=== PATIENT | female | born 1930 | race Caucasian/White ===

== ENCOUNTER 2018-10-13 21:28 | Emergency (ER) | payer MEDICARE, OTHER ==
[~2018-10-13] VITALS: Ht 154.9 cm; Wt 77.1 kg
--- NOTE | 2018-10-13 21:54 | NUR ---
BIBDAUGHTER C/O SOB X 1 DAY, DENIES ANY CP AT THIS TIME. HX OF COPD. PATIENT STATES SHE HAVING THROAT PAIN W/A "CHOKING FEELING". DOES NOT APPEAR TO BE IN DISTRESS. O2 SAT 97% ON RA. HYPERTENSIVE AND BRADYCARDIC, AOX4, AMBULATORY. ON MONITOR, MADE COMFORTABLE. READY FOR EVAL.
[2018-10-13 22:48] LABS: BASOPHILS # (AUTO) 0.1 /CMM (0.0-0.2); BASOPHILS % (AUTO) 2.1 % (0.0-2.0); EOSINOPHILS % (AUTO) 4.4 % (0.0-6.0); HEMATOCRIT 33 % (33-45); HEMOGLOBIN 11.1 g/dL (11.5-14.8); LYMPHOCYTES # (AUTO) 1.5 /CMM (0.8-4.8); LYMPHOCYTES % (AUTO) 23.4 % (20.0-44.0); MEAN CORPUSCULAR HGB CONC 33 g/dl (31.0-36.0); MEAN CORPUSCULAR VOLUME 84 fL (82-100); MONOCYTES # (AUTO) 0.8 /CMM (0.1-1.30); MONOCYTES % (AUTO) 13.2 % (2.0-12.0); NEUTROPHILS # (AUTO) 3.6 /CMM (1.8-8.9); NEUTROPHILS % (AUTO) 56.9 % (43.0-81.0); PLATELET COUNT (AUTO) 196 /CMM (150-450); WHITE BLOOD COUNT (AUTO) 6.4 K/uL (4.3-11.0)
[2018-10-13 22:56] LABS: CALCIUM, SERUM 9.5 mg/dL (8.5-10.1); CARBON DIOXIDE 26 mmol/L (21-32); CHLORIDE 107 mmol/L (98-107); CREATININE 1.4 mg/dL (0.6-1.3); GLUCOSE 99 mg/dL (74-106); POTASSIUM 4.5 mmol/L (3.5-5.1); SODIUM SERUM 142 mmol/L (136-145); UREA NITROGEN, BLOOD 30 mg/dL (7-18)
[2018-10-13] MEDS: IV NS 0.9% 1,000 ML BAG IV ONE (23:30)
[2018-10-14] MEDS ORDERED: IOHEXOL-300 100 ML VIAL IV ONE (00:01)
[2018-10-14] MEDS ORDERED: CT SWABBABLE VALVE TRANS SET 1 EA INFUS.SET MC ONE (00:01)
[2018-10-14] MEDS ORDERED: IV NS 0.9% 250 ML IV ONE (00:01)
[2018-10-14] MEDS ORDERED: IPRATROPIUM NEB FS 0.5 MG/2.5 ML AMPUL.NEB NEB ONE (02:00)
[2018-10-14] MEDS ORDERED: ALBUTEROL FS 2.5 MG/3 ML VIAL.NEB NEB ONE (02:00)
[2018-10-14] MEDS ORDERED: predniSONE 20 MG TABLET PO ONE (02:00)
--- NOTE | 2018-10-14 02:21 | NUR ---
CONTACT INFORMATION: [phone]
--- NOTE | 2018-10-14 02:41 | NUR ---
PT HYPERTENSIVE, MD AWARE
--- NOTE | 2018-10-14 04:07 | NUR ---
Patient discharged to home in stable condition. Written and verbal after care instructions given. Patient verbalizes understanding of instruction. IV removed. Catheter intact and site benign. Pressure and 4x4 applied to site. No bleeding noted.Pt ambulatory with a steady gait
[2018-10-14 04:08] VITALS: BP 170/70
== END 2018-10-14 04:08 | disposition home or self-care (01) ==
LOC: ER 21:36
DX: R06.00 Dyspnea, unspecified (principal); M54.2 Cervicalgia; I11.0 Hypertensive heart disease with heart failure; I50.9 Heart failure, unspecified; J44.9 Chronic obstructive pulmonary disease, unspecified; F32.9 Major depressive disorder, single episode, unspecified; Z88.0 Allergy status to penicillin; Z86.73 Personal history of transient ischemic attack (TIA), and cerebral infarction without residual deficits; Z98.890 Other specified postprocedural states
CPT/HCPCS: 36415; 70491; 71045; 80048; 84484; 85025; 93005; 99284; J7030; J7050; Q9967